=== PATIENT | female | born 1965 | race Asian ===

== ENCOUNTER 2016-08-08 17:57 | Emergency (ER) | payer BC ==
[~2016-08-08] VITALS: Ht 162.6 cm; Wt 59.0 kg
[2016-08-08] MEDS ORDERED: Morphine Sulfate 4mg/ml Inj IVP ONE (18:15)
[2016-08-08] MEDS ORDERED: MULTIPLE VITAM1 EAC6 PO (18:17)
--- NOTE | 2016-08-08 18:20 | Emergency Room Report ---
History of Present Illness General Chief Complaint: To Be Triaged Source: Patient Present Illness HPI 51 YO F walk-in with acute episode of epigastric pain radiating to back while sitting on cough talking on phone. Denies associated nausea/vomiting, diarrhea, fever/chills. has had uterine fibroids removed in the past. History of asthma. No other medical problems. Didnt take any other medications. Allergies: Coded Allergies: No Known Allergies (Unverified , 08/08/16) Patient History Past Medical History: asthma Past Surgical History: none Pertinent Family History: none Social History: Denies: alcohol use, drug use, smoking Now: No Immunizations: UTD Reviewed Nursing Documentation: PMH: Agreed, PSxH: Agreed Review of Systems All Other Systems: negative except mentioned in HPI Physical Exam Sp02 EP Interpretation: reviewed, normal General Appearance: normal inspection, well appearing, no apparent distress, alert, GCS 15, non-toxic Head: normocephalic, atraumatic Eyes: bilateral eye EOMI, bilateral eye PERRL ENT: normal ENT inspection, hearing grossly normal, normal voice Neck: normal inspection, full range of motion, supple, no bony tend Respiratory: normal inspection, lungs clear, normal breath sounds, no rhonchi, no respiratory distress, no retraction, no accessory muscle use, no wheezing, speaking full sentences Cardiovascular #1: regular rate, rhythm, no edema Gastrointestinal: normal inspection, normal bowel sounds, soft, no guarding, no hernia, other - + epigastric ttp. No rebound, guarding Genitourinary: no CVA tenderness Musculoskeletal: normal inspection, back normal, normal range of motion, Ann' s Sign negative Neurologic: normal inspection, alert, oriented x3, responsive, tester sound III-XII nml as tested, motor strength/tone normal, speech normal Psychiatric: normal inspection, judgement/insight normal, mood/affect normal Skin: normal inspection, normal color, no rash Lymphatic: normal inspection Medical Decision Making Diagnostic Impression: Primary Impression: Epigastric abdominal pain Additional Impression: Pancreatitis Qualified Codes: K85.90 - Acute pancreatitis without necrosis or infection, unspecified ER Course Epigastric pain. VSS. Afebrile DDx includes perforation, pancreatitis, colitis, acid reflux, ACS, PNA PLAN Labs, CXR, analgesia, reassess EKG Diagnostic Results Rate: normal Rhythm: NSR ST Segments: no acute changes ASA given to the pt in ED: No Rhythm Strip Diag. Results EP Interpretation: yes Rate: 87 Rhythm: NSR, no PVC's, no ectopy Chest X-Ray Diagnostic Results EP Interpretation: Yes Findings: no consolidation, no effusion, no pneumothorax, no acute cardiopulmonary disease Number of Views: 1 Reevaluation Time: 19:21 Status: improved Reevaluation Impression Labs: Elevated lipase and LFTs. Bili normal. No leuks. H&H stable. CXR: No free-air. No PNA ECG is NSR. Troponin 0. A - Likely acute pancreatitis. Elevated LFTs. Possible GS pancreatitis. Will get official Sono. Patient NPO. Maintenance fluids running - unlikely ACS given normal ECG, negative troponin, no CAD risk factors - Patient feels much better - Admitted to Dr Sage for transfer to [facility] bed at 811pm As of 811pm, ultrasound still pending. Tech was paged at 730pm. Tech arrived 912pm d/t flat tire on car. Sono in progress Endorsed to Dr Edgar at 930pm to followup any abnormalities on sono Disposition: ADMITTED INPATIENT Condition: Serious GODWNI INMAN M.D. Aug 08, 2016 18:20
[2016-08-08 18:29] VITALS: BP 153/84
[2016-08-08 18:33] LABS: BASOPHILS % (AUTO) 1.4 % (0.0-2.0); EOSINOPHILS % (AUTO) 1.9 % (0.0-3.0); LYMPHOCYTES % (AUTO) 20.1 % (20.0-45.0); MEAN CORPUSCULAR HEMOGLOBIN 25.7 PG (27.0-31.0); MEAN CORPUSCULAR HGB CONC 31.9 G/DL (32.0-36.0); MEAN CORPUSCULAR VOLUME 81 FL (80-99); MEAN PLATELET VOLUME 6.7 FL (6.5-10.1); NEUTROPHILS % (AUTO) 69.6 % (45.0-75.0); PLATELET COUNT 342 K/UL (150-450); RED BLOOD COUNT 4.69 M/UL (4.20-5.40); RED CELL DISTRIBUTION WIDTH 14.7 % (11.6-14.8); WHITE BLOOD COUNT 7.5 K/UL (4.8-10.8)
[2016-08-08] MEDS ORDERED: LR 1000ml 1,000 ML IV STA (18:44)
[2016-08-08 18:54] LABS: TROPONIN I < 0.30 ng/mL (<=0.30)
[2016-08-08 18:56] LABS: ALANINE AMINOTRANSFERASE 74 U/L (3-33); ALBUMIN/GLOBULIN RATIO 1.5 (1.0-2.7); ANION GAP 14 (5-15); ASPARTATE AMINO TRANSFERASE 114 U/L (5-40); CALCIUM 9.7 mg/dL (8.6-10.2); CARBON DIOXIDE 25 mEQ/L (20-30); CHLORIDE 103 mEQ/L (98-107); CREATININE 0.7 mg/dL (0.5-0.9); GLOMERULAR FILTRATION RATE > 60 mL/min (>60); HEMOLYSIS 1; LIPASE 140 U/L (< 60); POTASSIUM 3.9 mEQ/L (3.4-4.9); SODIUM 142 mEQ/L (135-145); TOTAL PROTEIN 6.9 g/dL (6.6-8.7)
[2016-08-08 19:26] LABS: APPEARANCE,URINE CLEAR; KETONES,URINE NEGATIVE (NEGATIVE); LEUKOCYTE ESTERASE ,URINE 1+ (NEGATIVE); NITRITE,URINE NEGATIVE (NEGATIVE); PH,URINE 7 (4.5-8.0); PROTEIN,URINE NEGATIVE (NEGATIVE); UROBILINOGEN,URINE NORMAL MG/DL (0.0-1.0)
[2016-08-08 19:46] LABS: RBC,URINE 0-2 /HPF (0 - 2); SQUAMOUS EPITHELIAL CELL,UR FEW /LPF (NONE/OCC); WBC,URINE 0-2 /HPF (0 - 2)
[2016-08-08 19:47] LABS: BACTERIA,URINE OCCASIONAL /HPF
[2016-08-08 21:39] VITALS: BP 124/79
[2016-08-08 21:52] VITALS: BP 124/79
--- NOTE | 2016-08-09 10:08 | Diagnostic Imaging Report ---
Indications: Abdominal pain, elevated liver enzymes Technique: Transabdominal real-time grayscale and duplex Doppler imaging of the upper abdomen and retroperitoneum was performed. Findings: Comparison: None. Liver normal size and surface contour, parenchymal echogenicity. No focal lesions. Gallbladder unremarkable. No intraluminal stones or sludge. No mural thickening or adjacent fluid collections. Sonographic Pham sign negative.. Bile ducts normal caliber. Common bile duct 5 mm. Pancreas and body unremarkable; tail obscured. Spleen unremarkable. Right kidney unremarkable. Left kidney unremarkable. Abdominal aorta, intrahepatic portion of inferior vena cava patent, normal caliber. Duplex Doppler imaging demonstrates antegrade flow in splenic, portal, hepatic veins. No ascites. IMPRESSION: Pancreatic tail obscured Otherwise negative abdominal shunt.
--- NOTE | 2016-08-09 10:51 | Diagnostic Imaging Report ---
Indication: Chest pain Technique: Single portable AP view of the chest. Findings: Comparison: None. The bones and extra pulmonary soft tissues, cardiomediastinal silhouette, pulmonary vasculature and parenchyma, and pleural surfaces are unremarkable. IMPRESSION: Negative portable AP chest.
--- NOTE | 2016-08-10 18:53 | Cardiology Report ---
APPROVED REPORT EKG Measurement Heart [id number] Normal sinus rhythm Nonspecific ST abnormality Abnormal ECG
== END 2016-08-08 21:48 | disposition short-term general hospital (02) ==
LOC: EMR 18:35
DX: K85.90 Acute pancreatitis without necrosis or infection, unspecified (principal)
CPT/HCPCS: 36415; 71010; 76700; 80053; 80300; 81003; 81025; 83690; 84484; 85025; 93005; 99285; J2270; J2405